=== PATIENT | female | born 1990 | race African-American/Black ===

== ENCOUNTER 2023-02-20 23:58 | Emergency (ER) | payer BC ==
[~2023-02-20] VITALS: Ht 172.7 cm; Wt 80.0 kg
[2023-02-21 00:05] VITALS: BP 148/85
== END 2023-02-21 01:30 | disposition left against medical advice (07) ==
LOC: ER 23:58
DX: J02.9 Acute pharyngitis, unspecified (principal)
CPT/HCPCS: 99281